=== PATIENT | male | born 1955 ===

== ENCOUNTER 2021-02-08 08:00 | Outpatient (CLI) | payer OTHER ==
[~2021-02-08] VITALS: Ht 177.8 cm; Wt 77.1 kg
[2021-02-08] MEDS ORDERED: CARDURA XL4 MG PO (09:18)
[2021-02-08] MEDS ORDERED: RESTORIL30 M1 PO (09:19)
== END 2021-02-08 08:30 | disposition home or self-care (01) ==
LOC: LAB 08:00 → EDSTATUS 02-17 07:00 → SURG 02-17 07:00
PROVIDERS: ATTEND Surgery
DX: I10 Essential (primary) hypertension (principal); Z03.818 Encounter for observation for suspected exposure to other biological agents ruled out; D12.8 Benign neoplasm of rectum; K62.5 Hemorrhage of anus and rectum; K64.8 Other hemorrhoids

== ENCOUNTER 2021-02-08 08:00 | Outpatient (CLI) | payer OTHER ==
[2021-02-08] MEDS ORDERED: CARDURA XL4 MG PO (09:18)
[2021-02-08] MEDS ORDERED: RESTORIL30 M1 PO (09:19)
== END 2021-02-08 08:30 | disposition home or self-care (01) ==
LOC: LAB 08:00 → AMB-ENDOS 02-15 08:38 → EDSTATUS 02-15 11:45
PROVIDERS: ATTEND Surgery
DX: Z03.818 Encounter for observation for suspected exposure to other biological agents ruled out (principal)

== ENCOUNTER 2021-03-14 11:45 | Inpatient (IN) | payer OTHER ==
[~2021-03-14] VITALS: Ht 177.8 cm; Wt 77.1 kg
[~2021-03-14 11:45] MED LIST: CARDURA XL4 MG PO; RESTORIL30 M1 PO
[2021-03-14] MEDS ORDERED: TEMAZE PO (15:40)
[2021-03-14] MEDS ORDERED: CELEBREX PO (15:41)
[2021-03-24] MEDS ORDERED: OMEPRAZOLE20 MG (11:35)
[2021-03-24] MEDS ORDERED: OMEGA-3 ACID ETH1 GM (11:35)
[2021-03-24] MEDS ORDERED: PREGABALIN75 MG (11:35)
[2021-03-24] MEDS ORDERED: CELEBREX50 MG (11:37)
[2021-03-25] MEDS ORDERED: ULTRACET PO (12:36)
== END 2021-03-25 13:09 | disposition home or self-care (01) | DRG 395 ==
LOC: SURH 03-17 07:00 → O/R 03-24 07:15 → SURH 03-24 11:45
PROVIDERS: ADMIT Surgery; ATTEND Surgery
PROC: 0DBP8ZZ Excision of Rectum, Via Natural or Artificial Opening Endoscopic (ICD-10-PCS; principal; 2021-03-24 13:15)
DX: D12.8 Benign neoplasm of rectum (principal)

== ENCOUNTER 2021-03-15 05:30 | Day surgery (SDC) | payer OTHER ==
[~2021-03-15 05:30] MED LIST changes: +CELEBREX PO; +TEMAZE PO
== END 2021-03-15 11:30 | disposition home or self-care (01) ==
LOC: AMB-ENDOS 05:30
PROVIDERS: ATTEND Surgery
DX: K62.1 Rectal polyp (principal); K64.8 Other hemorrhoids; Z20.822 Contact with and (suspected) exposure to COVID-19